=== PATIENT | female | born 1995 | race Caucasian/White ===

== ENCOUNTER 2016-11-06 12:37 | Emergency (ER) | payer OTHER ==
--- NOTE | 2016-11-06 14:56 | DIAGNOSTIC IMAGING REPORT ---
PROCEDURE: CT ABD/PELVIS WITH CONTRAST INDICATION: Trauma. Horse fall. TECHNIQUE: 96 ml of Isovue 300 were injected intravenously and axial images were obtained of the entire abdomen and pelvis with sagittal and coronal reformations. COMPARISON: None. FINDINGS: ABDOMEN: There are minimally distracted fractures of the left second, third, and fourth transverse processes of the lumbar vertebra. The rest of the osseous structures are normal with a limbus vertebra of the anterior superior L4 vertebral body (incidental finding). There is mild soft tissue contusion over the left posterior and lower subcutaneous tissues of the abdomen and upper pelvis. Gallbladder, liver, spleen, pancreas, kidneys, and aorta are normal. Bowel pattern is normal, including appendix. PELVIS: Uterus and adnexal structures are normal. No evidence of free fluid. IMPRESSION: 1. There are acute fractures of the transverse processes of the left L1, L2, and L3 vertebra. 2. Soft tissue contusion of the left posterior lateral subcutaneous tissues. 3. Otherwise negative CT abdomen and pelvis. No evidence of internal injury. 4. Findings discussed with YOSSI Morris. All CT scans at this facility use dose modulation, iterative reconstruction, and/or weight-based dosing when appropriate to reduce radiation dose to as low as reasonably achievable.
--- NOTE | 2016-11-06 16:01 | ED NURSING NOTES ---
Clinical Report - Nurses [facility] [address] [place] [address] 11/06/2016 12:38 Patient: SHERLYN THOMSON TRIAGE Acuity: LEVEL 3. Chief Complaint: FALL OFF A HORSE, landed on their back. Alert. No acute distress. SEPSIS SCREEN: Sepsis Screen. Negative (no infection suspected/documented). MP COMA SCORE: [place] Coma Scale: 15- eyes open spontaneously (4); best verbal response- oriented x 4 (5); best motor response- obeys commands (6). --12:44 Ewa Hall R.N. 12:38 11/06/16. BP: 123/86. HR: 83. RR: 20. O2 saturation: 100% on room air. Temp: 98.4 F. --12:44 Ewa Hall R.N. Weight: 58.9 kg stated. Height/Length: 64 inches Per Patient. BMI: 22.3. --12:44 Ewa Hall R.N. Medications LamoTRIgine Oral. --12:39 Ewa Hall R.N. Control Pills. --12:40 Ewa Hall R.N. Medication/allergy information source: the patient. --12:44 Ewa Hall R.N. Allergies No Known Drug Allergy. --12:40 Ewa Hall R.N. History Arrived by EMS. Historian: patient. Unaccompanied. This occurred just prior to arrival. She has had moderate lower back pain. She has had trouble walking. No loss of consciousness. No neck pain. Treatment FOOD QUALITY TECHNICIAN: None. PAST MEDICAL HX: Immunizations: up-to-date. Last normal menstrual period was 2 weeks ago. Uses control pills. SOCIAL HX: Never smoker. Occasional alcohol use. No drug use. NUTRITIONAL RISK ASSESSMENT: The nutritional risk assessment revealed no deficiencies. FUNCTIONAL ASSESSMENT: Functional assessment: no impairments noted. LEARNING NEEDS ASSESSMENT: The learning needs assessment revealed no barriers. FALL RISK ASSESSMENT: Fall risk assessment completed. Risk factors identified include severe pain. SKIN INTEGRITY ASSESSMENT: Skin integrity risk assessment completed. No skin integrity risk identified. --12:44 Ewa Hall R.N. Assessment GENERAL / NEURO / PSYCH: Alert. Oriented X 4. Appears in no acute distress. Patient appears calm and cooperative. RESPIRATORY: Respirations not labored. Breath sounds within normal limits. CVS: Capillary refill less than 2 seconds. GI / : Abdomen nontender. SKIN: Mucous membranes are pink. Skin is warm and dry. --12:44 Ewa Hall R.N. Interventions ID band on patient. To treatment room. --12:44 Ewa Hall R.N. PHYSICAL ASSESSMENT 12:45 11/06/16. To room via stretcher. GENERAL / NEURO / PSYCH: Alert. Oriented X 4. Appears in no acute distress. Appears in pain. HEENT: Pupils equal, round and reactive to light. Head non-tender. RESPIRATORY: Respirations not labored. CVS: Pulses within normal limits. Capillary refill less than 2 seconds. GI / : Abdomen soft and nontender. EXTREMITIES: Neuro-vascular status intact to the extremity. SKIN: Skin intact. Skin is warm and dry. --12:45 Ewa Hall R.N. NURSING PROGRESS NOTES 12:45 11/06/16. Two patient identifiers checked. Call light placed in reach. Side rails up x 2. Bed placed in lowest position. Brakes of bed on. Patient ready for evaluation- chart flagged and EMERGENCY COMMUNICATIONS DISPATCHER notified. --12:45 Ewa Hall R.N. 13:15 11/06/2016 Site #1 started via IV in the left antecubital space with an 20g angiocath, with aseptic technique and good blood return; one attempt. Blood drawn: rainbow set. Labeled in the presence of the patient and sent to the lab. Saline lock flushed with 10 mL saline. --13:15 Ewa Hall R.N. 13:16 11/06/2016 Toradol IVP 30 mg given over 1 minute(s) via site #1. Allergies verified and confirmed 5 rights. IV patency established. IV site checked: no pain, redness, or swelling. IV flushed thoroughly pre- and post-medication administration. IVP given by RN. --13:16 Ewa Hall R.N. 13:54 11/06/16. Reassessment after medication administered. She reports no complaints, she is calm and resting quietly and she has had no adverse reaction. Overall patient status is improved- she states feels better. --13:54 Ewa Hall R.N. 14:36 11/06/16. BP: 110/72. HR: 76. RR: 12. O2 saturation: 100% on room air. Pain level now: 11/28. --14:37 Ewa Hall R.N. 14:45 11/06/16. The patient reports no complaints and she is calm and resting quietly. Overall patient status- she states feels better. ( family at bedside). --14:45 Ewa Hall R.N. 15:26 11/06/2016 Dilaudid (HYDROmorphone HCl PF) IVP 1 mg given over 4 minute(s) via site #1. Allergies verified, confirmed 5 rights and sedative warning given to the patient and patient's family. IV patency established. IV site checked: no pain, redness, or swelling. IV flushed thoroughly pre- and post-medication administration. IVP given by RN. --15:26 Ewa Hall R.N. 15:38 11/06/16. ( Pt ambulated to BR.). --15:38 Ewa Hall R.N. 15:50 11/06/16. Checked patient name and birthdate: patient confirmed. Instructions provided to collect clean catch urine and patient verbalized understanding. Clean catch urine collected with return of yellow-colored clear urine; sample sent to lab for urinalysis. Specimen labeled in the presence of the patient. --15:50 Ewa Hall R.N. DISPOSITION / DISCHARGE Departure time: :Nov 06 2016. Condition at departure: improved and stable. No learning barriers present. Discharge instructions provided and reviewed with the patient and parent. Reviewed medication(s) side effects, precautions, dosing and course information. Prescription(s) given to the patient. Patient and parent verbalized understanding. Written instructions provided in [place]. The patient was discharged by the nurse practitioner. She was discharged home and accompanied by parent. She left the Emergency Department ambulatory and via private vehicle. Parent driving. --16:48 Ewa Hall R.N. 16:47 11/06/16. BP: 116/71. HR: 79. RR: 12. O2 saturation: 100% on room air. Temp: 98.3 F (oral). Pain level now: 10/28. --16:48 Ewa Hall R.N. 16:10 11/06/2016 Site #1 removed upon discharge. Catheter intact. Manual pressure and bandage applied. --16:49 Ewa Hall R.N. Locked/Released at 11/06/2016 21:39 by Ewa Hall R.N.
--- NOTE | 2016-11-06 16:01 | ED CLINICAL REPORT ---
Clinical Report - Physicians/Mid Levels [facility] [address] [place] [address] 11/06/2016 12:38 [id number] Time Seen: 12:38; upon arrival, initial patient contact, initial documentation, patient care assumed. Arrived- By ambulance. Historian- patient. HISTORY OF PRESENT ILLNESS Chief Complaint: FALL. Location of injuries- lower back and left hip. The injury occurred just prior to arrival. Fell 5-6 feet off a horse while jumping and landed on the ground (jumping horse and fell off after landing from jump). The patient complains of severe pain. The patient sustained a moderate blow to the head. No neck pain, loss of consciousness or seizure. Not dazed. REVIEW OF SYSTEMS The patient complains of pain on weight bearing. No chest pain, difficulty breathing, laceration or vomiting. All systems otherwise negative, except as recorded above. PAST HISTORY Negative. SOCIAL HISTORY Never smoker. Occasional alcohol use. No drug use. No recent travel. Is a local resident. FAMILY HISTORY No significant family medical history. ADDITIONAL NOTES The nursing notes have been reviewed with agreement regarding the chief complaint, HPI, ROS, PMH and patient medications and allergies. PHYSICAL EXAM Vital Signs: 11/06/2016 12:38 BP: 123/86. HR: 83. RR: 20. O2 saturation: 100%. Temp: 98.4 F. Have been reviewed as normal and appear to be correct. Appearance: Patient on a backboard. Alert. Oriented X3. No acute distress. Head: Head non-tender. No swelling of head. Eyes: Pupils equal, round and reactive to light. EOM intact. ENT: No dental injury. Pharynx normal. Neck: Painless ROM. Non-tender. CVS: Heart sounds normal. Pulses normal. Respiratory: Breath sounds normal. Chest nontender. Abdomen: No visible injury. Soft and nontender. Back: Back tenderness present. Moderate soft-tissue tenderness in the left costovertebral angle. Abnormal ROM. Moderately limited ROM in the back- in the lumbar spine: decreased flexion, extension, right lateral bending, left lateral bending and rotation to the right and left. No vertebral point tenderness or muscle spasm. Skin: Skin intact. Skin warm and dry. Normal skin color. Normal skin turgor. Extremities: Normal inspection. Pelvis stable. Extremities atraumatic. No lower extremity edema. Neuro: Oriented X 3. No motor deficit. No sensory deficit. LABS, X-RAYS, AND EKG CT Abdomen: . IMPRESSION: 1. There are acute fractures of the transverse processes of the left L1, L2, and L3 vertebra. 2. Soft tissue contusion of the left posterior lateral subcutaneous tissues. 3. Otherwise negative CT abdomen and pelvis. No evidence of internal injury. 4. Findings discussed with YOSSI Morris. All CT scans at this facility use dose modulation, iterative reconstruction, and/or weight-based dosing when appropriate to reduce radiation dose to as low as reasonably achievable. Electronically Final signed by:Rivas To MD 11/06/2016 2:54:17 PM. The study was interpreted by the radiologist and discussed with the radiologist. Interpretation time: 1450. Laboratory Tests: Normal. UA-Culture if indicated: (MARILEE: 11/06/2016 15:45) ( [facility] 11/06/2016 15:57) IP Test Result Flag Units (Reference) URINE COLOR YELLOW URINE APPEARANCE CLEAR URINE GLUCOSE NEGATIVE (NEGATIVE) URINE BILIRUBIN NEGATIVE (NEGATIVE) URINE KETONE 1+ (NEGATIVE) URINE SPECIFIC GRAVITY <= 1.005 L (1.010-1.030) URINE PH 6.0 (5.0-8.0) URINE PROTEIN 1+ (NEGATIVE) URINE UROBILINOGEN 0.2 EU/dL (0.2-1.0) URINE NITRITE NEGATIVE (NEGATIVE) URINE BLOOD NEGATIVE (NEGATIVE) URINE LEUK ESTERASE NEGATIVE (NEGATIVE) Serum Qualitative: (MARILEE: 11/06/2016 12:10) ( [facility] 11/06/2016 14:01) Final results Test Result Flag Units (Reference) , SERUM NEGATIVE CBC w Diff: (MARILEE: 11/06/2016 12:10) ( [facility] 11/06/2016 13:30) Final results Test Result Flag Units (Reference) WHITE BLOOD COUNT 8.7 K/uL (4.5-11.5) RED BLOOD COUNT 4.86 M/uL (4.00-5.20) HEMOGLOBIN 13.3 gm/dL (12.0-16.0) HEMATOCRIT 39.9 % (36.0-46.0) MEAN CELL VOLUME 82 fL (80-100) MEAN CORPUSCULAR HGB 27 pg (26-34) MEAN CORPUSCULAR HGB CONC 33 g/dL (31-37) RED CELL DISTRIBUTION WIDTH 14.1 % (11.6-14.8) PLATELET COUNT 289 K/uL (150-400) NEUTROPHIL % 80.5 H % (50-75) LYMPH % 14.8 L % (25-40) MONO % 4.3 % (3-14) EOSINOPHIL % 0.1 % (0-4) BASOPHIL % 0.3 % (0-2) CMP: (MARILEE: 11/06/2016 12:10) ( MsgRcvd 11/06/2016 13:48) Final results Test Result Flag Units (Reference) GLUCOSE 97 mg/dL (70-110) BUN 10 mg/dL (7-18) CREATININE 0.9 mg/dL (0.6-1.3) Estimated GFR >60 mL/min Estimated GFR- >60 mL/min Note: Persistent reduction over 3 months in eGFR<60 mL/min/1.73 m2 defines CKD. Patients with eGFR values>=60 mL/min/1.73 m2 may also have CKD if evidence ofpersistent proteinuria. Additional information may be foundat www.kidney.org. SODIUM 141 mmol/L (136-145) POTASSIUM 4.2 mmol/L (3.5-5.1) CHLORIDE 106 mmol/L (98-107) CARBON DIOXIDE 24 mmol/L (21-32) CALCIUM 8.9 mg/dL (8.5-10.1) TOTAL PROTEIN 7.3 g/dL (6.4-8.2) ALBUMIN 3.7 g/dL (3.3-5.0) BILIRUBIN, TOTAL 0.3 mg/dL (0.0-1.0) ALKALINE PHOSPHATASE 72 U/L (46-116) AST (SGOT) 21 U/L (15-37) ALT (SGPT) 27 U/L (12-78) . PROGRESS AND PROCEDURES Course of Care: 1452. parents now here, and when pt was told about her fxs, she started crying instantly, and was having trouble calming down 16:08 11/06/16. pt sitting up, smiling now and thanking me for the care. 11/06/2016 14:36 BP: 110/72. HR: 76. RR: 12. O2 saturation: 100%. Pain level now: 11/28. Vital Signs: have been reviewed as normal and appear to be correct. Patient counseled in person regarding the patient's stable condition, test results and diagnosis. 14:52. Differential Diagnosis: Other possible considerations: fall, dislocation, fx, contusions, sprains, lacs, abrasions, internal injury - kidney. Above considerations are based on history, physical exam, laboratory data and other information. Differential diagnosis was discussed with patient. Disposition: Discharged home in good and improved condition. Condition: good and stable. CLINICAL IMPRESSION Fall on same level by slipping (horse). L2 transverse process fracture; L3 transverse process fracture; L4 transverse process fracture. No associated neurological deficit. INSTRUCTIONS Warnings: HEAD INJURY PRECAUTIONS: An observer must check on the patient frequently for the next 24 hours to confirm that the patient responds as expected, is not confused, has no new weakness or numbness, and has no other problems. GENERAL WARNINGS: Return or contact your physician immediately if your condition worsens or changes unexpectedly, if not improving as expected, or if other problems arise. SPECIFICALLY, return if you develop weakness of the leg, numbness or incontinence of feces (loss of bowel control) or urine (loss of bladder control). chest pain, trouble breathing, abdominal pain, bloody urine. Prescription Medications: Zofran 4 mg: Take 1 orally every six hours as needed for nausea/vomiting. Dispense ten (10). No refills. Substitution is permissible. Louin 5 mg / 325 mg tablets: take 1 orally every 6 hours as needed for pain. Dispense thirty (30). No refill. Motrin 800 mg tablets: take 1 tablet orally every 8 hours as needed for pain. Dispense thirty (30). No refills. Substitution is permissible. Follow-up: Follow up with your doctor in about three days even if well. Call for an appointment. Summary of care provided to patient. Understanding of the discharge instructions verbalized by patient. Follow-up with: El Wolfe MD, Neurology, , [id number], , [place], [phone] Follow up in about two weeks even if well. Call for an appointment. Summary of care provided to patient. (Electronically signed by Brittney Tam A.R.N.P. 11/06/2016 23:58)
--- NOTE | 2016-11-06 16:01 | ED CLINICAL REPORT ---
Clinical Report - Physicians/Mid Levels [facility] [address] [place] [address] 11/06/2016 12:38 [id number] Time Seen: 12:38; upon arrival, initial patient contact, initial documentation, patient care assumed. Arrived- By ambulance. Historian- patient. HISTORY OF PRESENT ILLNESS Chief Complaint: FALL. Location of injuries- lower back and left hip. The injury occurred just prior to arrival. Fell 5-6 feet off a horse while jumping and landed on the ground (jumping horse and fell off after landing from jump). The patient complains of severe pain. The patient sustained a moderate blow to the head. No neck pain, loss of consciousness or seizure. Not dazed. REVIEW OF SYSTEMS The patient complains of pain on weight bearing. No chest pain, difficulty breathing, laceration or vomiting. All systems otherwise negative, except as recorded above. PAST HISTORY Negative. SOCIAL HISTORY Never smoker. Occasional alcohol use. No drug use. No recent travel. Is a local resident. FAMILY HISTORY No significant family medical history. ADDITIONAL NOTES The nursing notes have been reviewed with agreement regarding the chief complaint, HPI, ROS, PMH and patient medications and allergies. PHYSICAL EXAM Vital Signs: 11/06/2016 12:38 BP: 123/86. HR: 83. RR: 20. O2 saturation: 100%. Temp: 98.4 F. Have been reviewed as normal and appear to be correct. Appearance: Patient on a backboard. Alert. Oriented X3. No acute distress. Head: Head non-tender. No swelling of head. Eyes: Pupils equal, round and reactive to light. EOM intact. ENT: No dental injury. Pharynx normal. Neck: Painless ROM. Non-tender. CVS: Heart sounds normal. Pulses normal. Respiratory: Breath sounds normal. Chest nontender. Abdomen: No visible injury. Soft and nontender. Back: Back tenderness present. Moderate soft-tissue tenderness in the left costovertebral angle. Abnormal ROM. Moderately limited ROM in the back- in the lumbar spine: decreased flexion, extension, right lateral bending, left lateral bending and rotation to the right and left. No vertebral point tenderness or muscle spasm. Skin: Skin intact. Skin warm and dry. Normal skin color. Normal skin turgor. Extremities: Normal inspection. Pelvis stable. Extremities atraumatic. No lower extremity edema. Neuro: Oriented X 3. No motor deficit. No sensory deficit. LABS, X-RAYS, AND EKG CT Abdomen: . IMPRESSION: 1. There are acute fractures of the transverse processes of the left L1, L2, and L3 vertebra. 2. Soft tissue contusion of the left posterior lateral subcutaneous tissues. 3. Otherwise negative CT abdomen and pelvis. No evidence of internal injury. 4. Findings discussed with YOSSI Morris. All CT scans at this facility use dose modulation, iterative reconstruction, and/or weight-based dosing when appropriate to reduce radiation dose to as low as reasonably achievable. Electronically Final signed by:Rivas To MD 11/06/2016 2:54:17 PM. The study was interpreted by the radiologist and discussed with the radiologist. Interpretation time: 1450. Laboratory Tests: Normal. UA-Culture if indicated: (MARILEE: 11/06/2016 15:45) ( [facility] 11/06/2016 15:57) IP Test Result Flag Units (Reference) URINE COLOR YELLOW URINE APPEARANCE CLEAR URINE GLUCOSE NEGATIVE (NEGATIVE) URINE BILIRUBIN NEGATIVE (NEGATIVE) URINE KETONE 1+ (NEGATIVE) URINE SPECIFIC GRAVITY <= 1.005 L (1.010-1.030) URINE PH 6.0 (5.0-8.0) URINE PROTEIN 1+ (NEGATIVE) URINE UROBILINOGEN 0.2 EU/dL (0.2-1.0) URINE NITRITE NEGATIVE (NEGATIVE) URINE BLOOD NEGATIVE (NEGATIVE) URINE LEUK ESTERASE NEGATIVE (NEGATIVE) Serum Qualitative: (MARILEE: 11/06/2016 12:10) ( [facility] 11/06/2016 14:01) Final results Test Result Flag Units (Reference) , SERUM NEGATIVE CBC w Diff: (MARILEE: 11/06/2016 12:10) ( [facility] 11/06/2016 13:30) Final results Test Result Flag Units (Reference) WHITE BLOOD COUNT 8.7 K/uL (4.5-11.5) RED BLOOD COUNT 4.86 M/uL (4.00-5.20) HEMOGLOBIN 13.3 gm/dL (12.0-16.0) HEMATOCRIT 39.9 % (36.0-46.0) MEAN CELL VOLUME 82 fL (80-100) MEAN CORPUSCULAR HGB 27 pg (26-34) MEAN CORPUSCULAR HGB CONC 33 g/dL (31-37) RED CELL DISTRIBUTION WIDTH 14.1 % (11.6-14.8) PLATELET COUNT 289 K/uL (150-400) NEUTROPHIL % 80.5 H % (50-75) LYMPH % 14.8 L % (25-40) MONO % 4.3 % (3-14) EOSINOPHIL % 0.1 % (0-4) BASOPHIL % 0.3 % (0-2) CMP: (MARILEE: 11/06/2016 12:10) ( MsgRcvd 11/06/2016 13:48) Final results Test Result Flag Units (Reference) GLUCOSE 97 mg/dL (70-110) BUN 10 mg/dL (7-18) CREATININE 0.9 mg/dL (0.6-1.3) Estimated GFR >60 mL/min Estimated GFR- >60 mL/min Note: Persistent reduction over 3 months in eGFR<60 mL/min/1.73 m2 defines CKD. Patients with eGFR values>=60 mL/min/1.73 m2 may also have CKD if evidence ofpersistent proteinuria. Additional information may be foundat www.kidney.org. SODIUM 141 mmol/L (136-145) POTASSIUM 4.2 mmol/L (3.5-5.1) CHLORIDE 106 mmol/L (98-107) CARBON DIOXIDE 24 mmol/L (21-32) CALCIUM 8.9 mg/dL (8.5-10.1) TOTAL PROTEIN 7.3 g/dL (6.4-8.2) ALBUMIN 3.7 g/dL (3.3-5.0) BILIRUBIN, TOTAL 0.3 mg/dL (0.0-1.0) ALKALINE PHOSPHATASE 72 U/L (46-116) AST (SGOT) 21 U/L (15-37) ALT (SGPT) 27 U/L (12-78) . PROGRESS AND PROCEDURES Course of Care: 1452. parents now here, and when pt was told about her fxs, she started crying instantly, and was having trouble calming down 16:08 11/06/16. pt sitting up, smiling now and thanking me for the care. 11/06/2016 14:36 BP: 110/72. HR: 76. RR: 12. O2 saturation: 100%. Pain level now: 11/28. Vital Signs: have been reviewed as normal and appear to be correct. Patient counseled in person regarding the patient's stable condition, test results and diagnosis. 14:52. Differential Diagnosis: Other possible considerations: fall, dislocation, fx, contusions, sprains, lacs, abrasions, internal injury - kidney. Above considerations are based on history, physical exam, laboratory data and other information. Differential diagnosis was discussed with patient. Disposition: Discharged home in good and improved condition. Condition: good and stable. CLINICAL IMPRESSION Fall on same level by slipping (horse). L2 transverse process fracture; L3 transverse process fracture; L4 transverse process fracture. No associated neurological deficit. INSTRUCTIONS Warnings: HEAD INJURY PRECAUTIONS: An observer must check on the patient frequently for the next 24 hours to confirm that the patient responds as expected, is not confused, has no new weakness or numbness, and has no other problems. GENERAL WARNINGS: Return or contact your physician immediately if your condition worsens or changes unexpectedly, if not improving as expected, or if other problems arise. SPECIFICALLY, return if you develop weakness of the leg, numbness or incontinence of feces (loss of bowel control) or urine (loss of bladder control). chest pain, trouble breathing, abdominal pain, bloody urine. Prescription Medications: Zofran 4 mg: Take 1 orally every six hours as needed for nausea/vomiting. Dispense ten (10). No refills. Substitution is permissible. [place] 5 mg / 325 mg tablets: take 1 orally every 6 hours as needed for pain. Dispense thirty (30). No refill. Motrin 800 mg tablets: take 1 tablet orally every 8 hours as needed for pain. Dispense thirty (30). No refills. Substitution is permissible. Follow-up: Follow up with your doctor in about three days even if well. Call for an appointment. Summary of care provided to patient. Understanding of the discharge instructions verbalized by patient. Follow-up with: El Wolfe MD, Neurology, , [id number], , [place], [phone] Follow up in about two weeks even if well. Call for an appointment. Summary of care provided to patient. (Electronically signed by Brittney Tam A.R.N.P. 11/06/2016 23:58)
--- NOTE | 2016-11-06 16:01 | ED ORDER SUMMARY ---
..... Patient: SHERLYN THOMSON OrderSheet [facility] VisitID: [id number] [place] [address] 20y, F Registration Date/Time: 11/06/2016 ORDER SHEET Weight: 58.9 kg (stated) Allergies: No Known Drug Allergy GENERAL ORDERS: CT Abd/Pel wo Cont Urgent (12:54 11/06/2016 HBivens A.R.N.P.) (Ack 12:56 KHoerner) (13:31 HBivens A.R.N.P.) (Cancelled: Other13:32 HBivens A.R.N.P.) CBC w Diff Urgent (12:54 11/06/2016 HBivens A.R.N.P.) (Ack 12:56 KHoerner) (13:15 MWinterer R.N.) CMP Urgent (12:54 11/06/2016 HBivens A.R.N.P.) (Ack 12:56 KHoerner) (13:15 MWinterer R.N.) UA-Culture if indicated Urgent (12:54 11/06/2016 HBivens A.R.N.P.) (Ack 12:56 KHoerner) (15:49 MWinterer R.N.) Serum Qualitative Urgent (12:54 11/06/2016 HBivens A.R.N.P.) (Ack 12:56 KHoerner) (13:15 MWinterer R.N.) CT Abd/Pel w Cont (No) (pending) Urgent (13:32 11/06/2016 HBivens A.R.N.P.) (Ack 13:33 KHoerner) (15:01 MWinterer R.N.) MEDICATION ORDERS: IV FLUIDS: Toradol IV 30 mg (NOW) (12:54 11/06/2016 HBivens A.R.N.P.) (Ack 13:02 MWinterer R.N.) (13:16 MWinterer R.N.) IV Saline Lock (12:54 11/06/2016 HBivens A.R.N.P.) (Ack 13:02 MWinterer R.N.) (13:15 MWinterer R.N.) Dilaudid IV 1 mg (HIGH ALERT MEDICATION, NOW) (15:20 11/06/2016 HBivens A.R.N.P.) (15:26 MWinterer R.N.) ORDER SHEET NOTES: [Electronically signed by Ewa Hall R.N. (21:39 11/06/2016)] [Electronically signed by Brittney Tam A.R.N.P. (23:58 11/06/2016)] [Electronically locked/signed by Ewa Hall R.N. (21:39 11/06/2016)]
--- NOTE | 2016-11-06 16:01 | ED ORDER SUMMARY ---
..... Patient: SHERLYN THOMSON OrderSheet [facility] VisitID: [id number] [place] [address] 20y, F Registration Date/Time: 11/06/2016 ORDER SHEET Weight: 58.9 kg (stated) Allergies: No Known Drug Allergy GENERAL ORDERS: CT Abd/Pel wo Cont Urgent (12:54 11/06/2016 HBivens A.R.N.P.) (Ack 12:56 KHoerner) (13:31 HBivens A.R.N.P.) (Cancelled: Other13:32 HBivens A.R.N.P.) CBC w Diff Urgent (12:54 11/06/2016 HBivens A.R.N.P.) (Ack 12:56 KHoerner) (13:15 MWinterer R.N.) CMP Urgent (12:54 11/06/2016 HBivens A.R.N.P.) (Ack 12:56 KHoerner) (13:15 MWinterer R.N.) UA-Culture if indicated Urgent (12:54 11/06/2016 HBivens A.R.N.P.) (Ack 12:56 KHoerner) (15:49 MWinterer R.N.) Serum Qualitative Urgent (12:54 11/06/2016 HBivens A.R.N.P.) (Ack 12:56 KHoerner) (13:15 MWinterer R.N.) CT Abd/Pel w Cont (No) (pending) Urgent (13:32 11/06/2016 HBivens A.R.N.P.) (Ack 13:33 KHoerner) (15:01 MWinterer R.N.) MEDICATION ORDERS: IV FLUIDS: Toradol IV 30 mg (NOW) (12:54 11/06/2016 HBivens A.R.N.P.) (Ack 13:02 MWinterer R.N.) (13:16 MWinterer R.N.) IV Saline Lock (12:54 11/06/2016 HBivens A.R.N.P.) (Ack 13:02 MWinterer R.N.) (13:15 MWinterer R.N.) Dilaudid IV 1 mg (HIGH ALERT MEDICATION, NOW) (15:20 11/06/2016 HBivens A.R.N.P.) (15:26 MWinterer R.N.) ORDER SHEET NOTES: [Electronically signed by Ewa Hall R.N. (21:39 11/06/2016)] [Electronically signed by Brittney Tam A.R.N.P. (23:58 11/06/2016)] [Electronically locked/signed by Ewa Hall R.N. (21:39 11/06/2016)]
--- NOTE | 2016-11-06 16:01 | ED NURSING NOTES ---
Clinical Report - [facility] [address] [place] [address] 11/06/2016 12:38 Patient: SHERLYN THOMSON TRIAGE Acuity: LEVEL 3. Chief Complaint: FALL OFF A HORSE, landed on their back. Alert. No acute distress. SEPSIS SCREEN: Sepsis Screen. Negative (no infection suspected/documented). MP COMA SCORE: [place] Coma Scale: 15- eyes open spontaneously (4); best verbal response- oriented x 4 (5); best motor response- obeys commands (6). --12:44 Ewa Hall R.N. 12:38 11/06/16. BP: 123/86. HR: 83. RR: 20. O2 saturation: 100% on room air. Temp: 98.4 F. --12:44 Ewa Hall R.N. Weight: 58.9 kg stated. Height/Length: 64 inches Per Patient. BMI: 22.3. --12:44 Ewa Hall R.N. Medications LamoTRIgine Oral. --12:39 Ewa Hall R.N. Control Pills. --12:40 Ewa Hall R.N. Medication/allergy information source: the patient. --12:44 Ewa Hall R.N. Allergies No Known Drug Allergy. --12:40 Ewa Hall R.N. History Arrived by EMS. Historian: patient. Unaccompanied. This occurred just prior to arrival. She has had moderate lower back pain. She has had trouble walking. No loss of consciousness. No neck pain. 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 PAST MEDICAL HX: Immunizations: up-to-date. Last normal menstrual period was 2 weeks ago. Uses control pills. SOCIAL HX: Never smoker. Occasional alcohol use. No drug use. NUTRITIONAL RISK ASSESSMENT: The nutritional risk assessment revealed no deficiencies. FUNCTIONAL ASSESSMENT: Functional assessment: no impairments noted. LEARNING NEEDS ASSESSMENT: The learning needs assessment revealed no barriers. FALL RISK ASSESSMENT: Fall risk assessment completed. Risk factors identified include severe pain. SKIN INTEGRITY ASSESSMENT: Skin integrity risk assessment completed. No skin integrity risk identified. --12:44 Ewa Hall R.N. Assessment GENERAL / NEURO / PSYCH: Alert. Oriented X 4. Appears in no acute distress. Patient appears calm and cooperative. RESPIRATORY: Respirations not labored. Breath sounds within normal limits. CVS: Capillary refill less than 2 seconds. GI / : Abdomen nontender. SKIN: Mucous membranes are pink. Skin is warm and dry. --12:44 Ewa Hall R.N. Interventions ID band on patient. To treatment room. --12:44 Ewa Hall R.N. PHYSICAL ASSESSMENT 12:45 11/06/16. To room via stretcher. GENERAL / NEURO / PSYCH: Alert. Oriented X 4. Appears in no acute distress. Appears in pain. HEENT: Pupils equal, round and reactive to light. Head non-tender. RESPIRATORY: Respirations not labored. CVS: Pulses within normal limits. Capillary refill less than 2 seconds. GI / : Abdomen soft and nontender. EXTREMITIES: Neuro-vascular status intact to the extremity. SKIN: Skin intact. Skin is warm and dry. --12:45 Ewa Hall R.N. NURSING PROGRESS NOTES 12:45 11/06/16. Two patient identifiers checked. Call light placed in reach. Side rails up x 2. Bed placed in lowest position. Brakes of bed on. 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 --12:45 Ewa Hall R.N. 13:15 11/06/2016 Site #1 started via IV in the left antecubital space with an 20g angiocath, with aseptic technique and good blood return; one attempt. Blood drawn: rainbow set. Labeled in the presence of the patient and sent to the lab. Saline lock flushed with 10 mL saline. --13:15 Ewa Hall R.N. 13:16 11/06/2016 Toradol IVP 30 mg given over 1 minute(s) via site #1. Allergies verified and confirmed 5 rights. IV patency established. IV site checked: no pain, redness, or swelling. IV flushed thoroughly pre- and post-medication administration. IVP given by RN. --13:16 Ewa Hall R.N. 13:54 11/06/16. Reassessment after medication administered. She reports no complaints, she is calm and resting quietly and she has had no adverse reaction. Overall patient status is improved- she states feels better. --13:54 Ewa Hall R.N. 14:36 11/06/16. BP: 110/72. HR: 76. RR: 12. O2 saturation: 100% on room air. Pain level now: 11/28. --14:37 Ewa Hall R.N. 14:45 11/06/16. The patient reports no complaints and she is calm and resting quietly. Overall patient status- she states feels better. ( family at bedside). --14:45 Ewa Hall R.N. 15:26 11/06/2016 Dilaudid (HYDROmorphone HCl PF) IVP 1 mg given over 4 minute(s) via site #1. Allergies verified, confirmed 5 rights and sedative warning given to the patient and patient's family. IV patency established. IV site checked: no pain, redness, or swelling. IV flushed thoroughly pre- and post-medication administration. IVP given by RN. --15:26 Ewa Hall R.N. 15:38 11/06/16. ( Pt ambulated to BR.). --15:38 Ewa Hall R.N. 15:50 11/06/16. Checked patient name and birthdate: patient confirmed. Instructions provided to collect clean catch urine and patient verbalized understanding. Clean catch urine collected with return of yellow-colored clear urine; sample sent to lab for urinalysis. Specimen labeled in the presence of the patient. --15:50 Ewa Hall R.N. DISPOSITION / DISCHARGE Departure time: :Nov 06 2016. Condition at departure: improved and stable. No learning barriers present. Discharge instructions provided and reviewed with the patient and parent. Reviewed medication(s) side effects, precautions, dosing and course information. Prescription(s) given to the patient. Patient and parent verbalized understanding. Written instructions provided in Palauan. The patient was discharged by the nurse practitioner. She was discharged home and accompanied by parent. She left the Emergency Department ambulatory and via private vehicle. Parent driving. --16:48 wEa Hall R.N. 16:47 11/06/16. BP: 116/71. HR: 79. RR: 12. O2 saturation: 100% on room air. Temp: 98.3 F (oral). Pain level now: 10/28. --16:48 Ewa Hall R.N. 16:10 11/06/2016 Site #1 removed upon discharge. Catheter intact. Manual pressure and bandage applied. --16:49 Ewa Hall R.N. Locked/Released at 11/06/2016 21:39 by Ewa Hall R.N.
--- NOTE | 2016-11-06 23:58 | ED MED RECONCILIATION SUMMARY ---
Patient: SHERLYN TOHMSON Medication Reconciliation Report [facility] VisitID: [id number] [place] [address] 20y, F Registration Date/Time: 11/06/2016 Weight: 58.9 kg Height/Length: 64 in. BMI: 22.3 ALLERGIES: No Known Drug Allergy The patient's Home Medications are listed below: THE FOLLOWING MEDICATIONS NEED TO BE RECONCILED: Control Pills LamoTRIgine Oral The source(s) of the original Home Medication information: patient The following Medications were given to the patient in the Emergency Department: Toradol [IVP] IVP 30 mg, administered: 11/06/2016 1:16:00 PM Dilaudid [IVP] IVP 1 mg, administered: 11/06/2016 3:26:00 PM The following Medications were prescribed to the patient: Zofran 4 mg: Take 1 orally every six hours as needed for nausea/vomiting. Dispense ten (10). No refills. Substitution is permissible. -- Brittney Tam, A.R.N.P. [place] 5 mg / 325 mg tablets: take 1 orally every 6 hours as needed for pain. Dispense thirty (30). No refill. -- Brittney Tam A.R.N.P. Motrin 800 mg tablets: take 1 tablet orally every 8 hours as needed for pain. Dispense thirty (30). No refills. Substitution is permissible. -- Brittney Tam A.R.N.P.
--- NOTE | 2016-11-06 23:58 | ED DISCHARGE INSTRUCTIONS ---
Patient: SHERLYN THOMSON General Instructions [facility] VisitID: [id number] [place] [address] 20y, F Registration Date/Time: 11/06/2016 Fall on same level by slipping (horse). L2 transverse process fracture; L3 transverse process fracture; L4 transverse process fracture. No associated neurological deficit. INSTRUCTIONS Warnings: HEAD INJURY PRECAUTIONS: An observer must check on the patient frequently for the next 24 hours to confirm that the patient responds as expected, is not confused, has no new weakness or numbness, and has no other problems. GENERAL WARNINGS: Return or contact your physician immediately if your condition worsens or changes unexpectedly, if not improving as expected, or if other problems arise. SPECIFICALLY, return if you develop weakness of the leg, numbness or incontinence of feces (loss of bowel control) or urine (loss of bladder control). chest pain, trouble breathing, abdominal pain, bloody urine. Prescription Medications: Zofran 4 mg: Take 1 orally every six hours as needed for nausea/vomiting. Dispense ten (10). No refills. Substitution is permissible. [place] 5 mg / 325 mg tablets: take 1 orally every 6 hours as needed for pain. Dispense thirty (30). No refill. Motrin 800 mg tablets: take 1 tablet orally every 8 hours as needed for pain. Dispense thirty (30). No refills. Substitution is permissible. Follow-up: Follow up with your doctor in about three days even if well. Call for an appointment. Summary of care provided to patient. Understanding of the discharge instructions verbalized by patient. Follow-up with: El Wolfe MD, Neurology, , [id number], [place], [id number] Follow up in about two weeks even if well. Call for an appointment. Summary of care provided to patient. ADDITIONAL INFORMATION Mechanical Fall You have had a fall today. It appears that the cause is mechanical. That means that you slipped, tripped or lost your balance. If your fall had been due to fainting or a seizure, further tests would be required. Home Care: Rest today and resume your normal activities when you are feeling back to normal. If you were injured during the fall, follow the advice from your doctor regarding care of your injury. You may use acetaminophen (Tylenol) or ibuprofen (Motrin, Advil) to control pain, unless another pain medicine was prescribed. [NOTE: If you have chronic liver or kidney disease or ever had a stomach ulcer or GI bleeding, talk with your doctor before using these medicines.] Fall Prevention: Was there anything that caused your fall that can be fixed, removed, or replaced? Make your home safe by keeping walkways clear of objects you may trip over. Use non-slip pads under rugs. Do not walk in poorly lit areas. Do not stand on chairs or wobbly ladders. Use caution when reaching overhead or looking upward. This position can cause a loss of balance. Be sure your shoes fit properly, have non-slip bottoms and are in good condition. Be cautious when going up and down curbs, and walking on uneven sidewalks. If your balance is poor, consider using a cane or walker. Stay as active as you can. Balance, flexibility, strength, and endurance all come from exercise. They all play a role in preventing falls. Follow Up with your doctor or as advised by our staff. Get Prompt Medical Attention if any of the following occur: Repeated mechanical falls, or unexplained falls Dizziness, fainting or seizure Severe headache Chest pain or shortness of breath Palpitations (very rapid or very slow or irregular heartbeat) Blood in vomit, stools (black or red color) Weakness of an arm or leg or one side of the face Difficulty with speech or vision Vertebral Compression Fracture You have a compression fracture of one of the bones in your spine. This fracture usually occurs in older persons with osteoporosis (thinning of the bones). It may occur after a ground level fall or even with a very minor force (bending forward, getting up from a seated position, coughing or sneezing). It may also occur in young healthy persons after a severe trauma (car accident or fall from a height). This is a stable fracture and does not cause any injury to the spinal cord or nerves. This injury will take 4-6 weeks to heal and can be treated at home with bed rest and pain medicine. Pain medicine and anti-inflammatory medicine (such as ibuprofen) can be used for a short term, but long-term use increases the risk of side effects. These include GI bleeding and narcotic dependence. If pain medicine is needed for more than 1-2 months, you should talk to your doctor about surgical treatment to re-align the compressed bones. Bed rest is fine during the first week, as needed for pain, but it is best to get out of bed as soon as possible. This avoids the risk of blood clots forming in the legs and weakening of your muscles from prolonged bed rest. A back brace (called TSLO) or abdominal binder may be prescribed to reduce pain by limiting motion at the fracture site. If you have osteoporosis, talk to your doctor about using calcium and Vitamin D supplements to prevent further bone loss. An exercise program (such as Pilates) to strengthen spine strength is a very important part of the treatment plan and should begin once the pain comes under control. Home Care: You may need to stay in bed the first few days. But, as soon as possible, begin sitting or walking to avoid problems with prolonged bed rest (muscle weakness, worsening back stiffness and pain, blood clots in the legs). When in bed, try to find a position of comfort. A firm mattress is best. Try lying flat on your back with pillows under your knees. You can also try lying on your side with your knees bent up towards your chest and a pillow between your knees. Avoid prolonged sitting. This puts more stress on the lower back than standing or walking. During the first two days after injury, apply an ICE PACK to the painful area for 20 minutes every 2-4 hours. This will reduce swelling and pain. HEAT (hot shower, hot bath or heating pad) works well for muscle spasm. You can start with ice, then switch to heat after two days. Some patients feel best alternating ice and heat treatments. Use the one method that feels the best to you. Take pain medicine as directed. Call your doctor if your pain is not well controlled. A dose change or stronger medicine may be needed. Be aware of safe lifting methods and do not lift anything over 15 pounds until all the pain is gone. Follow Up with your doctor in one week, or as advised by our staff, to be sure the bone is healing properly. [NOTE: A radiologist will review any X-rays that were taken. We will notify you of any new findings that may affect your care.] Get Prompt Medical Attention if any of the following occur: Pain becomes worse or spreads to your arms or legs Weakness or numbness in one or both legs Loss of control over bowels or bladder, or numbness in the groin area Head Injury, No Wake-Up (Adult) You have had a head injury. It does not appear serious at this time. Symptoms of a more serious problem (concussion, bruising, or bleeding in the brain) may appear later. Therefore, watch for the WARNING SIGNS listed below. Home Care: Your healthcare provider will tell you whether its okay to drive. If so, you can drive yourself home. For the next day or so, be careful when driving or using heavy machinery until you are sure you have no delayed symptoms. During the next 24 hours someone must stay with you to check for the signs below. It is not necessary to stay awake or be awakened during the night. If you have swelling of the face or scalp, apply an ice pack (ice cubes in a plastic bag, wrapped in a towel) for 20 minutes. Do this every 1-2 hours until the swelling starts to go down. Do not use aspirin or ibuprofen (Motrin, Advil) after a head injury.You may use acetaminophen (Tylenol)to control pain, unless another pain medicine was prescribed. [NOTE: If you have chronic liver or kidney disease or ever had a stomach ulcer or GI bleeding, talk with your doctor before using these medicines.] For the next 24 hours: Do not take alcohol, sedatives or medicines that make you sleepy. Avoid strenuous activities. No lifting or straining. If you have had any symptoms of a concussion today (nausea, vomiting, dizziness, confusion, headache, memory loss or if you were knocked out), do not return to sports or any activity that could result in another head injury until all symptoms are gone and you have been cleared by your doctor. A second head injury before fully recovering from the first one can lead to serious brain injury. Follow Up with your doctor if symptoms are not improving after 24 hours, or as directed. [NOTE: A radiologist will review any X-rays or CT scans that were taken. We will notify you of any new findings that may affect your care.] Get Prompt Medical Attention if any of the followingWARNING SIGNS occur: Repeated vomiting Severe or worsening headache or dizziness Unusual drowsiness, or unable to awaken as usual Confusion or change in behavior or speech, memory loss, blurred vision Convulsion (seizure) Increasing scalp or face swelling Redness, warmth or pus from the swollen area Fluid drainage or bleeding from the nose or ears Ondansetron Oral disintegrating tablet What is this medicine? ONDANSETRON (on KALEY se lauren) is used to treat nausea and vomiting caused by chemotherapy. It is also used to prevent or treat nausea and vomiting after surgery. How should I use this medicine? These tablets are made to dissolve in the mouth. Do not try to push the tablet through the foil backing. With dry hands, peel away the foil backing and gently remove the tablet. Place the tablet in the mouth and allow it to dissolve, then swallow. While you may take these tablets with water, it is not necessary to do so. Talk to your voip engineer regarding the use of this medicine in children. Special care may be needed. What side effects may I notice from receiving this medicine? Side effects that you should report to your doctor or health lpn care manager as soon as possible: allergic reactions like skin rash, itching or hives, swelling of the face, lips, or tongue breathing problems dizziness fast or irregular heartbeat feeling faint or lightheaded, falls fever and chills swelling of the hands and feet tightness in the chest Side effects that usually do not require medical attention (report to your doctor or health lpn care manager if they continue or are bothersome): constipation or diarrhea headache What may interact with this medicine? Do not take this medicine with any of the following medications: -apomorphine -cisapride -dofetilide -dronedarone -pimozide -thioridazine -ziprasidone This medicine may also interact with the following medications: -carbamazepine -phenytoin -rifampicin -tramadol -other medicines that prolong the QT interval (cause an abnormal heart rhythm) What if I miss a dose? If you miss a dose, take it as soon as you can. If it is almost time for your next dose, take only that dose. Do not take double or extra doses. Where should I keep my medicine? Keep out of the reach of children. Store between 2 and 30 degrees C (36 and 86 degrees F). Throw away any unused medicine after the expiration date. What should I tell my health care provider before I take this medicine? They need to know if you have any of these conditions: heart disease history of irregular heartbeat liver disease low levels of magnesium or potassium in the blood an unusual or allergic reaction to ondansetron, granisetron, other medicines, foods, dyes, or preservatives or trying to get breast-feeding What should I watch for while using this medicine? Check with your doctor or health lpn care manager as soon as you can if you have any sign of an allergic reaction. Hydrocodone Bitartrate, Acetaminophen Oral tablet What is this medicine? ACETAMINOPHEN; HYDROCODONE (a set a JUDY nacho fen; isaac droe KOE done) is a pain reliever. It is used to treat mild to moderate pain. How should I use this medicine? Take this medicine by mouth. Swallow it with a full glass of water. Follow the directions on the prescription label. If the medicine upsets your stomach, take the medicine with food or milk. Do not take more than you are told to take. Talk to your voip engineer regarding the use of this medicine in children. This medicine is not approved for use in children. What side effects may I notice from receiving this medicine? Side effects that you should report to your doctor or health lpn care manager as soon as possible: allergic reactions like skin rash, itching or hives, swelling of the face, lips, or tongue breathing problems confusion feeling faint or lightheaded, falls stomach pain yellowing of the eyes or skin Side effects that usually do not require medical attention (report to your doctor or health lpn care manager if they continue or are bothersome): nausea, vomiting stomach upset What may interact with this medicine? alcohol antihistamines isoniazid medicines for depression, anxiety, or psychotic disturbances medicines for sleep muscle relaxants naltrexone narcotic medicines (opiates) for pain phenobarbital ritonavir tramadol What if I miss a dose? If you miss a dose, take it as soon as you can. If it is almost time for your next dose, take only that dose. Do not take double or extra doses. Where should I keep my medicine? Keep out of the reach of children. This medicine can be abused. Keep your medicine in a safe place to protect it from theft. Do not share this medicine with anyone. Selling or giving away this medicine is dangerous and against the law. Store at room temperature between 15 and 30 degrees C (59 and 86 degrees F). Protect from light. Keep container tightly closed. Throw away any unused medicine after the expiration date. Discard unused medicine and used packaging carefully. Pets and children can be harmed if they find used or lost packages. What should I tell my health care provider before I take this medicine? They need to know if you have any of these conditions: brain tumor Crohn's disease, inflammatory bowel disease, or ulcerative colitis drink more than 3 alcohol-containing drinks per day drug abuse or addiction head injury heart or circulation problems kidney disease or problems going to the bathroom liver disease lung disease, asthma, or breathing problems an unusual or allergic reaction to acetaminophen, hydrocodone, other opioid analgesics, other medicines, foods, dyes, or preservatives or trying to get breast-feeding What should I watch for while using this medicine? Tell your doctor or health lpn care manager if your pain does not go away, if it gets worse, or if you have new or a different type of pain. You may develop tolerance to the medicine. Tolerance means that you will need a higher dose of the medicine for pain relief. Tolerance is normal and is expected if you take the medicine for a long time. Do not suddenly stop taking your medicine because you may develop a severe reaction. Your body becomes used to the medicine. This does NOT mean you are addicted. Addiction is a behavior related to getting and using a drug for a non-medical reason. If you have pain, you have a medical reason to take pain medicine. Your doctor will tell you how much medicine to take. If your doctor wants you to stop the medicine, the dose will be slowly lowered over time to avoid any side effects. You may get drowsy or dizzy when you first start taking the medicine or change doses. Do not drive, use machinery, or do anything that may be dangerous until you know how the medicine affects you. Stand or sit up slowly. There are different types of narcotic medicines (opiates) for pain. If you take more than one type at the same time, you may have more side effects. Give your health care provider a list of all medicines you use. Your doctor will tell you how much medicine to take. Do not take more medicine than directed. Call emergency for help if you have problems breathing. The medicine will cause constipation. Try to have a bowel movement at least every 2 to 3 days. If you do not have a bowel movement for 3 days, call your doctor or health lpn care manager. Too much acetaminophen can be very dangerous. Do not take Tylenol (acetaminophen) or medicines that contain acetaminophen with this medicine. Many non-prescription medicines contain acetaminophen. Always read the labels carefully. Ibuprofen Oral tablet What is this medicine? IBUPROFEN (eye BYOO proe fen) is a non-steroidal anti-inflammatory drug (NSAID). It is used for dental pain, fever, headaches or migraines, osteoarthritis, rheumatoid arthritis, or painful monthly periods. It can also relieve minor aches and pains caused by a cold, flu, or sore throat. How should I use this medicine? Take this medicine by mouth with a glass of water. Follow the directions on the prescription label. Take this medicine with food if your stomach gets upset. Try to not lie down for at least 10 minutes after you take the medicine. Take your medicine at regular intervals. Do not take your medicine more often than directed. A special MedGuide will be given to you by the pharmacist with each prescription and refill. Be sure to read this information carefully each time. Talk to your voip engineer regarding the use of this medicine in children. Special care may be needed. What side effects may I notice from receiving this medicine? Side effects that you should report to your doctor or health lpn care manager as soon as possible: allergic reactions like skin rash, itching or hives, swelling of the face, lips, or tongue black or bloody stools, blood in the urine or in vomit breathing problems changes in vision chest pain general ill feeling or flu-like symptoms nausea or vomiting redness, blistering, peeling or loosening of the skin, including inside the mouth slurred speech or weakness on one side of the body stomach pain unexplained weight gain or swelling unusually weak or tired yellowing of eyes or skin Side effects that usually do not require medical attention (report to your doctor or health lpn care manager if they continue or are bothersome): constipation or diarrhea dizziness gas or heartburn stomach upset What may interact with this medicine? Do not take this medicine with any of the following medications: cidofovir ketorolac methotrexate pemetrexed This medicine may also interact with the following medications: alcohol aspirin diuretics lithium other drugs for inflammation like prednisone warfarin What if I miss a dose? If you miss a dose, take it as soon as you can. If it is almost time for your next dose, take only that dose. Do not take double or extra doses. Where should I keep my medicine? Keep out of the reach of children. Store at room temperature between 15 and 30 degrees C (59 and 86 degrees F). Keep container tightly closed. Throw away any unused medicine after the expiration date. What should I tell my health care provider before I take this medicine? They need to know if you have any of these conditions: asthma cigarette smoker drink more than 3 alcohol containing drinks a day heart disease or circulation problems such as heart failure or leg edema (fluid retention) high blood pressure kidney disease liver disease stomach bleeding or ulcers an unusual or allergic reaction to ibuprofen, aspirin, other NSAIDS, other medicines, foods, dyes, or preservatives or trying to get breast-feeding What should I watch for while using this medicine? Tell your doctor or healthcare professional if your symptoms do not start to get better or if they get worse. This medicine does not prevent heart attack or stroke. In fact, this medicine may increase the chance of a heart attack or stroke. The chance may increase with longer use of this medicine and in people who have heart disease. If you take aspirin to prevent heart attack or stroke, talk with your doctor or health lpn care manager. Do not take other medicines that contain aspirin, ibuprofen, or naproxen with this medicine. Side effects such as stomach upset, nausea, or ulcers may be more likely to occur. Many medicines available without a prescription should not be taken with this medicine. This medicine can cause ulcers and bleeding in the stomach and intestines at any time during treatment. Ulcers and bleeding can happen without warning symptoms and can cause . To reduce your risk, do not smoke cigarettes or drink alcohol while you are taking this medicine. You may get drowsy or dizzy. Do not drive, use machinery, or do anything that needs mental alertness until you know how this medicine affects you. Do not stand or sit up quickly, especially if you are an older patient. This reduces the risk of dizzy or fainting spells. This medicine can cause you to bleed more easily. Try to avoid damage to your teeth and gums when you brush or floss your teeth. You have been given the following additional information: Fall, Mechanical Fracture, Vertebral Compression HEAD INJURY, No Wake-Up (Adult) Ondansetron Oral disintegrating tablet Hydrocodone Bitartrate, Acetaminophen Oral tablet Ibuprofen Oral tablet (Electronically signed by Brittney Tam A.R.N.P. 11/06/2016 23:58)
--- NOTE | 2016-11-06 23:58 | ED MAR SUMMARY ---
..... Medication Administration Record [facility] [address] [place] [address] Patient: SHERLYN THOMSON Visit ID: [id number] 20y, F Weight: 58.9 kg Height/Length: 64 in BMI: 22.3 ALLERGIES: No Known Drug Allergy Given 13:16 11/06/2016 Ewa Hall, RDellaN. Medication Administered: TORADOL [IVP], Dose: 30 mg IVP over 1 minute(s), Site: #1 left AC. Medication Ordered: Toradol IV 30 mg (NOW). Given 15:26 11/06/2016 Ewa Hall, R.N. Medication Administered: DILAUDID [IVP] (HYDROMORPHONE HCL PF), Dose: 1 mg IVP over 4 minute(s), Site: #1 left AC. Medication Ordered: Dilaudid IV 1 mg (HIGH ALERT MEDICATION, NOW).
--- NOTE | 2016-11-06 23:58 | ED MAR SUMMARY ---
..... Medication Administration Record [facility] [address] [place] [address] Patient: SHERLYN THOMSON Visit ID: [id number] 20y, F Weight: 58.9 kg Height/Length: 64 in BMI: 22.3 ALLERGIES: No Known Drug Allergy Given 13:16 11/06/2016 Ewa Hall, RDellaN. Medication Administered: TORADOL [IVP], Dose: 30 mg IVP over 1 minute(s), Site: #1 left AC. Medication Ordered: Toradol IV 30 mg (NOW). Given 15:26 11/06/2016 Ewa Hall, R.N. Medication Administered: DILAUDID [IVP] (HYDROMORPHONE HCL PF), Dose: 1 mg IVP over 4 minute(s), Site: #1 left AC. Medication Ordered: Dilaudid IV 1 mg (HIGH ALERT MEDICATION, NOW).
--- NOTE | 2016-11-06 23:58 | ED MED RECONCILIATION SUMMARY ---
Patient: SHERLYN THOMSON Medication Reconciliation Report [facility] VisitID: [id number] [place] [address] 20y, F Registration Date/Time: 11/06/2016 Weight: 58.9 kg Height/Length: 64 in. BMI: 22.3 ALLERGIES: No Known Drug Allergy The patient's Home Medications are listed below: THE FOLLOWING MEDICATIONS NEED TO BE RECONCILED: Control Pills LamoTRIgine Oral The source(s) of the original Home Medication information: patient The following Medications were given to the patient in the Emergency Department: Toradol [IVP] IVP 30 mg, administered: 11/06/2016 1:16:00 PM Dilaudid [IVP] IVP 1 mg, administered: 11/06/2016 3:26:00 PM The following Medications were prescribed to the patient: Zofran 4 mg: Take 1 orally every six hours as needed for nausea/vomiting. Dispense ten (10). No refills. Substitution is permissible. -- Brittney Tam, A.R.N.P. [place] 5 mg / 325 mg tablets: take 1 orally every 6 hours as needed for pain. Dispense thirty (30). No refill. -- Brittney Tam A.R.N.P. Motrin 800 mg tablets: take 1 tablet orally every 8 hours as needed for pain. Dispense thirty (30). No refills. Substitution is permissible. -- Brittnye Tam A.R.N.P.
== END 2016-11-06 16:10 | disposition home or self-care (01) ==
LOC: ED SRH 12:37
DX: S32.028A Other fracture of second lumbar vertebra, initial encounter for closed fracture (principal); S32.038A Other fracture of third lumbar vertebra, initial encounter for closed fracture; S32.048A Other fracture of fourth lumbar vertebra, initial encounter for closed fracture; V80.010A Animal-rider injured by fall from or being thrown from horse in noncollision accident, initial encounter; Y93.52 Activity, horseback riding; Y99.9 Unspecified external cause status
CPT/HCPCS: 90004; 90100; 95059; 98428